=== PATIENT | female | born 1950 | race Caucasian/White ===

== ENCOUNTER 2021-07-11 09:32 | Emergency (ER) | payer MEDICARE, OTHER ==
[2021-07-11 09:40] VITALS: BP 133/68; PULSE 77; RESP 18; TEMP 98.7
[2021-07-11] MEDS ORDERED: MORPHINE SULFATE 4 MG/ML SYRINGE IM STA (09:53)
[2021-07-11] MEDS ORDERED: ACET/COD 300 MG/30 MG STARTER PACK 6 TAB BTL PO STA (09:54)
--- NOTE | 2021-07-11 09:55 | ED ---
General Adult HPI - General Chief complaint: Recheck/Abnormal Lab/Rx Stated complaint: leg/back pain Time Seen by Provider: 07/11/21 09:45 Source: patient, family, RN notes reviewed Mode of arrival: wheelchair Limitations: physical limitation - History of Present Illness Initial comments: Patient is a pleasant [age]-year-old female presenting to the emergency Department with complaints of lower back discomfort. Patient has chronic lower back discomfort for years. Patient has had multiple previous evaluations and images been on this. Patient is headed to [place] and would like something for pain. Patient states she does have an appointment to see her doctor there with further testing. Patient denies any incontinence or retention of bowel or bladder. Patient denies any weakness. No loss of sensation. Discomfort is similar to her chronic discomfort. No abdominal pain. No chest pain. Patient has some chronic dyspnea that is unchanged. Patient is on home O2 for this. - Related Data Allergies Allergy/AdvReac Type Severity Reaction Status Date / Time naproxen [From Naprosyn] AdvReac gagging Verified 07/11/21 09:40 Review of Systems ROS Statement: Those systems with pertinent positive or pertinent negative responses have been documented in the HPI. ROS Other: All systems not noted in ROS Statement are negative. Constitutional: Denies: fever Eyes: Denies: eye pain ENT: Denies: ear pain Respiratory: Reports: as per HPI Cardiovascular: Denies: chest pain Endocrine: Denies: fatigue Gastrointestinal: Denies: abdominal pain Genitourinary: Denies: dysuria Musculoskeletal: Reports: as per HPI, back pain Skin: Denies: rash Neurological: Denies: weakness Past Medical History Past Medical History: Heart Failure, COPD, GERD/Reflux, Hyperlipidemia, Myocardial Infarction ([place]) Additional Past Medical History / Comment(s): kidney disease, breast ca, colon ca, aviary lung infection History of Any Multi-Drug Resistant Organisms: None Reported Past Surgical History: Heart Catheterization With Stent Additional Past Surgical History / Comment(s): bilat masectomy, colon resection, fem-pop left Past Psychological History: Depression Smoking Status: Former smoker Past Alcohol Use History: None Reported Past Drug Use History: None Reported General Exam Limitations: no limitations, physical limitation General appearance: alert, in no apparent distress Head exam: Present: normocephalic Eye exam: Present: normal appearance Neck exam: Present: normal inspection Respiratory exam: Present: normal lung sounds bilaterally Cardiovascular Exam: Present: regular rate, normal rhythm Expanded Peripheral pulses: 2+: Posterior Tibialis (R), Posterior Tibialis (L), Dorsalis Pedis (R), Dorsalis Pedis (L) GI/Abdominal exam: Present: soft. Absent: tenderness Extremities exam: Present: normal inspection. Absent: pedal edema, calf tenderness Back exam: Present: vertebral tenderness (Lower lumbar spine) Neurological exam: Present: alert. Absent: motor sensory deficit Expanded Sensory exam: Lower Extremity Light Touch: Normal Motor strength exam: RLE: 5, LLE: 5 Psychiatric exam: Present: normal affect, normal mood Skin exam: Present: normal color Course Vital Signs 07/11/21 09:34 Temperature 98.7 F Pulse Rate 77 Respiratory 18 Rate Blood Pressure 133/68 O2 Sat by Pulse 100 Oximetry - Reevaluation(s) Reevaluation #1: 07/11/21 10:00 Patient refuses any imaging. Patient would just like pain medication. Disposition Clinical Impression: Low back pain Disposition: HOME SELF-CARE Condition: Stable Instructions (If sedation given, give patient instructions): Acute Low Back Pain (ED) Additional Instructions: Please follow-up with your doctor in [place] seems to get there. Return for increased pain, weakness, loss control of bowel or bladder, loss of sensation, fevers, worsening or change in symptoms or other concerns. Please stop at any other facility during your travels if needed. Is patient prescribed a controlled substance at d/c from ED?: No Referrals: Chalo Webb [STAFF PHYSICIAN] - 1-2 days Time of Disposition: 10:02
== END 2021-07-11 10:30 | disposition home or self-care (01) ==
LOC: EC 09:32
DX: M54.5 Low back pain (principal); J44.9 Chronic obstructive pulmonary disease, unspecified; I50.9 Heart failure, unspecified; I25.2 Old myocardial infarction; E78.5 Hyperlipidemia, unspecified; Z87.891 Personal history of nicotine dependence; Z88.6 Allergy status to analgesic agent
CPT/HCPCS: 99283; 96372; J2270